=== PATIENT | female | born 1950 ===

== ENCOUNTER 2021-02-14 19:15 | Emergency (ER) | payer OTHER ==
[~2021-02-14] VITALS: Ht 160 cm; Wt 65.5 kg
[2021-02-14 19:33] VITALS: BP 143/88
== END 2021-02-14 19:55 ==
LOC: ER 19:15
DX: F10.129 Alcohol abuse with intoxication, unspecified (principal); Y90.9 Presence of alcohol in blood, level not specified; V89.2XXA Person injured in unspecified motor-vehicle accident, traffic, initial encounter; Y93.89 Activity, other specified; Y92.89 Other specified places as the place of occurrence of the external cause; Y99.8 Other external cause status
CPT/HCPCS: 99283